=== PATIENT | male | born 1975 | race Caucasian/White ===

== ENCOUNTER → 2019-03-14 | Outpatient (CLI) | payer BC ==
--- NOTE | 2019-03-14 11:59 | CONS ---
CONSULTATION DATE OF SERVICE: 03/14/2019 A 43-year-old gentleman had been evaluated in the sleep center for possible obstructive sleep apnea-hypopnea syndrome. HISTORY OF PRESENT ILLNESS/SLEEP-WAKE EVALUATION: Patient's usual sleep schedule on working days from 11 p.m. until 4:45 a.m. and on weekends from around midnight until 8:30 or 8:45 a.m. Sometimes he does have problems with falling asleep because of anxiety. He has TV set in bedroom, usually sleeps on the side position. According to his fiance, he has loud snoring and witnessed episodes of stopped breathing during the sleep. Patient wakes up from sleep with episodes of choking and gasping for air up to 2 times per night. During the day, he does not take naps. [place] Sleepiness Scale is 6. PAST MEDICAL HISTORY: Positive for anxiety, hypertension. PAST SURGICAL HISTORY: Tonsillectomy, adenoidectomy, and surgery on sinuses. MEDICATIONS: Ativan on p.r.n. basis and Norvasc. SOCIAL HISTORY: Positive for smoking about 1 pack a day for 25 years. Alcohol consumption about every second evening. The patient using alcohol to help him to fall asleep in decreasing his episodes of his anxiety, according to him. FAMILY HISTORY: Hypertension, asthma, sinus problems, sleep apnea, bronchitis, diabetes. REVIEW OF SYSTEMS: Multiple awakenings from sleep, anxiety episodes. PHYSICAL EXAMINATION: During physical exam, a 43-year-old gentleman without distress but has constant movements of his legs and arms, possibly related to anxiety. VITAL SIGNS: BP 145/90, HR 96, RR 16, height 5 feet 6 inches, weight 169, body mass index 27.2, temperature 98.5, oxygen saturation at room air 99%. HEENT: PERRLA, EOMI. Oropharynx low position of soft palate, Mallampati 3-4. Restriction of nasal breathing bilaterally. Wide neck 17 inches in circumference. NECK: Supple, no JVD. Thyroid is not palpable. LUNGS: Clear to percussion and to auscultation. Good air exchange. No wheezing or rhonchi. HEART: S1, S2 regular. No murmurs, gallops, or rubs. ABDOMEN: Slightly obese. EXTREMITIES: No clubbing or cyanosis. [employer]: Awake, alert, and oriented X3. Cranial nerves 2 to 7 intact. There is no fasciculation or atrophy. noted. No focal deficits observed. IMPRESSION: 1. Loud snoring, witnessed episodes of stopped breathing during the sleep, awakenings from sleep, low position of soft palate, Mallampati 3-4, restriction of nasal breathing, wide neck, obstructive sleep apnea-hypopnea syndrome. 2. Anxiety, on treatment with Ativan on p.r.n. basis. 3. Hypertension. 4. Smoker for 25 pack years. 5. Status post tonsillectomy and adenoidectomy. 6. Status post sinus surgery. PLAN: 1. Polysomnography for evaluation of patient's breathing during sleep. 2. CPAP/BiPAP titration if sleep study confirms obstructive sleep apnea-hypopnea syndrome. 3. Preferable position during sleep on the side. 4. No driving if patient feels any sleepiness. 5. I will see patient for follow up visit to explain results of testing and following plan. Thank you very much for referring this patient for consultation. Sincerely, Corbin Fitch MD, PhD, FAASM Diplomat of [employer] [place] [employer] [place] [employer] [facility] [place] MMODL / IJN: [id number] /
== END | disposition home or self-care (01) ==
LOC: SLEEP 10:38
PROVIDERS: ATTEND Internal Medicine
DX: G47.33 Obstructive sleep apnea (adult) (pediatric) (principal); I10 Essential (primary) hypertension; F41.9 Anxiety disorder, unspecified; F17.200 Nicotine dependence, unspecified, uncomplicated; Z83.6 Family history of other diseases of the respiratory system; Z90.89 Acquired absence of other organs; Z98.890 Other specified postprocedural states; Z79.899 Other long term (current) drug therapy
CPT/HCPCS: 99211